=== PATIENT | male | born 1995 ===

== ENCOUNTER 2021-04-16 21:41 | Emergency (ER) | payer MEDICAID ==
--- NOTE | 2021-04-16 22:20 | EDM.PDOC ---
ED HPI GENERAL MEDICAL PROBLEM - General Chief Complaint: Medication Administration Stated Complaint: NEEDS MEDS Time Seen by Provider: 04/16/21 21:46 Source of Information: Reports: Patient History Limitations: Reports: No Limitations - History of Present Illness INITIAL COMMENTS - FREE TEXT/NARRATIVE: HISTORY AND PHYSICAL: History of present illness: Patient is a 26-year-old male, with a history of anxiety and depression, who presents emergency room today with concern of desire for medication refill. Patient states that he has been out of Abili for approximately 1 month. Patient states that he lives in [facility] and does not have a healthcare provider and does need to get a healthcare provider. Patient states he is not sure who to see for his issues but also has questions about erectile dysfunction. Patient denies any suicidal ideation or homicidal ideation and denies any auditory or visual hallucinations. Patient denies fever, chills, chest pain, shortness of breath, or cough. Denies headache, neck stiff ness, change in vision, syncope, or near syncope. Denies nausea, vomiting, abdominal pain, diarrhea, constipation, or dysuria. Has not noted any blood in urine or stool. Patient has been eating and drinking appropriately. Review of systems: As per history of present illness and below otherwise all systems reviewed and negative. Past medical history: As per history of present illness and as reviewed below otherwise noncontributory. Surgical history: As per history of present illness and as reviewed below otherwise noncontributory. Social history: See social history for further information Family history: As per history of present illness and as reviewed below otherwise noncontributory. Physical exam: General: Patient is alert, oriented, and in no acute distress. Patient sitting comfortably on exam table. Vitals stable and reviewed by me. HEENT: Atraumatic, normocephalic, pupils equal and reactive bilaterally, negative for conjunctival pallor or scleral icterus, mucous membranes moist, throat clear, neck supple, nontender, trachea midline. No drooling or trismus noted. No meningeal signs. No hot potato voice noted. Lungs: Clear to auscultation, breath sounds equal bilaterally, chest nontender. Heart: S1S2, regular rate and rhythm without overt murmur Abdomen: Soft, nondistended, nontender. Negative for masses or hepat osplenomegaly. Negative for costovertebral tenderness. Pelvis: Stable nontender. Genitourinary: Deferred. Rectal: Deferred. Skin: Intact, warm, dry. No lesions or rashes noted. Extremities: Atraumatic, negative for cords or calf pain. Neurovascular unremarkable. Neuro: Awake, alert, oriented. Cranial nerves II through XII unremarkable. Cerebellum unremarkable. Motor and sensory unremarkable throughout. Exam nonfocal. Notes: Patient is a 26-year-old male who presents emergency room for concern of medication refill for Abilify that he has been out for 1 month and with concerns of chronic erectile dysfunction. Upon arrival to the ED, patient is vitally stable and well-appearing on exam. Discussed with patient that I will place him on the expected follow-up list to establish care with a primary care provider to be seen tomorrow in order to his stress his medication management and concerns for chronic erectile dysfunction. Strict return precautions thoroughly discussed with patient. Discussed importance for follow-up with a primary care provider. Patient was placed on the expedited follow-up list. Voices understanding and is agreeable to plan of care. Denies any further questions or concerns at this time. Diagnostics: None Therapeutics: None Prescription: None Impression: Encounter for desire for medication refill Medical screening exam Plan: 1. You have been placed on the expedited follow-up list. They will call you tomorrow morning to set up an appointment time as discussed. 2. Follow-up with your primary care provider as discussed. Return to the ED as needed and as discussed. Definitive disposition and diagnosis as appropriate pending reevaluation and review of above. - Related Data Allergies Allergy/AdvReac Type Severity Reaction Status Date / Time No Known Allergies Allergy Verified 04/16/21 22:19 Home Meds: Home Meds ARIPiprazole [Abilify] 2 mg PO DAILY 04/16/21 [History] ED ROS GENERAL - Review of Systems Review Of Systems: Comprehensive ROS is negative, except as noted in HPI. ED EXAM, GENERAL - Physical Exam Exam: See Below (See dictation) Course - Vital Signs Last Recorded V/S: Last Vital Signs Temp 97.8 F 04/16/21 22:20 Pulse 112 H 04/16/21 22:20 Resp 18 04/16/21 22:20 BP 130/66 04/16/21 22:20 Pulse Ox 96 04/16/21 22:20 Departure - Departure Time of Disposition: 22:19 Disposition: Home, Self-Care 01 Clinical Impression: Encounter for medical screening examination, Encounter for medication refill - Discharge Information Instructions: Medical Screening Exam Referrals: PCP,None [Primary Care Provider] - Forms: ED Department Discharge Additional Instructions: The following information is given to patients seen in the emergency department who are being discharged to home. This information is to outline your options for follow-up care. We provide all patients seen in our emergency department with a follow-up referral. The need for follow-up, as well as the timing and circumstances, are variable depending upon the specifics of your emergency department visit. If you don't have a primary care physician on staff, we will provide you with a referral. We always advise you to contact your personal physician following an emergency department visit to inform them of the circumstance of the visit and for follow-up with them and/or the need for any referrals to a consulting specialist. The emergency department will also refer you to a specialist when appropriate. This referral assures that you have the opportunity for follow-up care with a specialist. All of these measure are taken in an effort to provide you with optimal care, which includes your follow-up. Under all circumstances we always encourage you to contact your private physician who remains a resource for coordinating your care. When calling for follow-up care, please make the office aware that this follow-up is from your recent emergency room visit. If for any reason you are refused follow-up, please contact the [facility] Emergency Department at and asked to speak to the emergency department charge nurse. [facility] [address] [place] [id number] [id number] 1. You have been placed on the expedited follow-up list. They will call you tomorrow morning to set up an appointment time as discussed. 2. Follow-up with your primary care provider as discussed. Return to the ED as needed and as discussed. Sepsis Event Note (ED) - Focused Exam Vital Signs: Vital Signs Temp Pulse Resp BP Pulse Ox 04/16/21 22:20 97.8 F 112 H 18 130/66 96
== END 2021-04-16 22:30 | disposition home or self-care (01) ==
LOC: MW.ED 21:41
DX: F32.A Depression, unspecified (principal); F41.9 Anxiety disorder, unspecified; Z76.0 Encounter for issue of repeat prescription; Z79.899 Other long term (current) drug therapy
CPT/HCPCS: 99281